=== PATIENT | female | born 1945 | race Two or more races ===

== ENCOUNTER 2016-12-22 20:15 | Emergency (ER) | payer MEDICARE, OTHER ==
[~2016-12-22] VITALS: Ht 165.1 cm; Wt 81.6 kg
[~2016-12-22 20:15] MED LIST: BACL10TA PO; CARI350T PO; GABA300C PO; UNKNOWN BP MEDS
--- NOTE | 2016-12-22 20:45 | NUR ---
PT PRESENTED TO THE ER WITH A C/O LEFT RIB PAIN S/P SLIP AND FALL ON 12/16/16 WHILE TURNING ON THE BATHTUB WATER. PT HAS ABD AND LEFT SIDED BRUISES NOTED. PT SI BELAR[place] SPEAKING ONLY. PT'S DAUGHTER IS AT THE BEDSIDE.
--- NOTE | 2016-12-22 21:00 | NUR ---
PT LEFT FOR CT VIA [facility]
--- NOTE | 2016-12-22 21:50 | NUR ---
Patient discharged to home in stable condition. Written and verbal after care instructions given. Patient verbalizes understanding of instruction. Ambulatory with a steady gait accompanied by daughter.
[2016-12-22 21:52] VITALS: BP 134/74
== END 2016-12-22 21:53 | disposition home or self-care (01) ==
LOC: ER 20:19
DX: S30.1XXA Contusion of abdominal wall, initial encounter (principal); S20.212A Contusion of left front wall of thorax, initial encounter; R91.8 Other nonspecific abnormal finding of lung field; I10 Essential (primary) hypertension; W18.2XXA Fall in (into) shower or empty bathtub, initial encounter; Y93.89 Activity, other specified; Y92.89 Other specified places as the place of occurrence of the external cause; Y99.9 Unspecified external cause status
CPT/HCPCS: 71250; 74176; 99284; A4606; 72192-TC; 74150-TC; Z7610

== ENCOUNTER 2017-06-18 19:11 | Emergency (ER) | payer MEDICARE, OTHER ==
[~2017-06-18] VITALS: Ht 165.1 cm; Wt 68.0 kg
[2017-06-18 19:21] VITALS: BP 139/66
== END 2017-06-18 22:52 | disposition home or self-care (01) ==
LOC: ER 19:13
DX: S92.515A Nondisplaced fracture of proximal phalanx of left lesser toe(s), initial encounter for closed fracture (principal); M79.644 Pain in right finger(s); Z98.890 Other specified postprocedural states; W22.8XXA Striking against or struck by other objects, initial encounter; Y93.89 Activity, other specified; Y92.89 Other specified places as the place of occurrence of the external cause; Y99.8 Other external cause status
CPT/HCPCS: 73140; 73660; 99284; A4606; Z7610